=== PATIENT | female | born 1985 | race Two or more races ===

== ENCOUNTER → 2019-11-05 | Outpatient (CLI) | payer OTHER | END | disposition home or self-care (01) | LOC: PRENATAL 11:17 | DX: O36.80X1 Pregnancy with inconclusive fetal viability, fetus 1 (principal); O09.521 Supervision of elderly multigravida, first trimester; Z36.82 Encounter for antenatal screening for nuchal translucency ==

== ENCOUNTER → 2019-12-26 | Outpatient (CLI) | payer OTHER | END | disposition home or self-care (01) | LOC: PRENATAL 14:34 | DX: O35.3XX0 Maternal care for (suspected) damage to fetus from viral disease in mother, not applicable or unspecified (principal); O09.522 Supervision of elderly multigravida, second trimester; Z36.89 Encounter for other specified antenatal screening ==